=== PATIENT | female | born 1990 | race Caucasian/White ===

== ENCOUNTER 2017-07-17 19:57 | Emergency (ER) | payer OTHER ==
[2017-07-17 20:02] VITALS: TEMP 97.5
[2017-07-17] MEDS ORDERED: LORazepam 1 MG TAB PO ONE (20:26)
--- NOTE | 2017-07-17 20:30 | EDPHY ---
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 For the past several weeks she has been experiencing intermittent pharyngitis symptoms and is followed by [facility] in [facility] ear nose and throat for intermittent numbness in her mouth with no neurologic deficits, no gait instability. She has been feeling similar symptoms today, then started to experience hyperventilation, carpal pedal spasms and came to the emergency department. She has a prior history of similar. Denies: Headache, visual disturbance, motor deficits, gait instability, slurred speech, major or minor head or neck trauma manipulation. 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 Nonsmoker. PHYSICAL EXAM (Prior to examination, patient consented to physical exam, hands were washed and my usual and customary physical exam procedures followed) 1) GENERAL: Well-developed, well-nourished, alert and oriented. Appears anxious. Tearful, crying. 2) HEAD: Normocephalic, atraumatic 3) HEENT: Pupils equal, round, reactive to light bilaterally. Sclera anicteric. Nasopharynx, oropharynx, clear, no lesions. Tonsillar enlargement or exudate. Ears bilaterally with normal tympanic membranes. 4) NECK: Full range of motion, no meningeal signs. No adenopathy. 5) LUNGS: Clear auscultation bilaterally, no wheezes, no rhonchi, no retractions. 6) HEART: Regular rate and rhythm, no murmur, no heave, no gallop. 7) ABDOMEN: No guarding, no rebound, no focal tenderness, negative McBurney's, negative Spear's, negative Rovsing's, negative peritoneal sign, 8) MUSCULOSKELETAL: Moving all extremities, no focal areas of tenderness, no obvious trauma. No peripheral edema or discoloration. 9) BACK: No CVA tenderness, no midline vertebral tenderness, no fluctuance, no step-off, no obvious trauma, no visual or palpable abnormality. 10) SKIN: No rash, no petechiae. 11) Psychiatric: Patient is oriented X 3, there is no agitation. 12) NEURO: Awake, alert, and oriented to person, place and time. Answers questions appropriately. There were no obvious focal neurologic abnormalities. No cerebellar dysfunction. Cranial nerves 2 through to 12 intact. Normal steady gait. Upper and lower extremities bilaterally with strength 5 / 5, reflexes 2+. DIFFERENTIAL DIAGNOSIS: In no particular include but limited to CVA, acute anxiety, neurologic disease Smoking Status: Former smoker Constitutional: Initial Vital Signs Temperature (C) 36.4 C 07/17/17 19:59 Heart Rate 100 07/17/17 19:59 Respiratory Rate 18 07/17/17 19:59 Blood Pressure 127/81 H 07/17/17 19:59 O2 Sat (%) 97 07/17/17 19:59 O2 Delivery Mode Room Air Allergies/Adverse Reactions: No Known Allergies Allergy (Unverified 07/17/17 20:02) Home Medications: Medication Instructions Recorded NK [No Known Home Meds] 07/17/17 MDM/Departure - MDM Medications Given: Discontinued Medications Lorazepam (Ativan) 1 mg PO EDNOW ONE Stop: 07/17/17 20:27 Last Admin: 07/17/17 20:31 Dose: 1 mg ED Course/Re-evaluation: 8:26 p.m.: Patient has a nonfocal neurologic examination. She appears quite anxious. Will administer oral Ativan and re-evaluate. 9:50 p.m.: Patient was re-evaluated with serial examinations. She was given oral Ativan and re-evaluated. She is feeling more calm. She appears improved. She remains with a nonfocal exam. She expresses her frustration at ongoing evaluation for intermittent or pharyngeal paresthesia, specific etiology which is not completely clear. On exam today she has a nonfocal exam initially and repeat evaluation. I do not think that emergent imaging is indicated. I have recommend she continue to follow up with ENT as well as provided referral information for Neurology and mental health resources. She denies suicidal or homicidal ideations. She feels comfortable with this plan. She feels comfortable being discharged. Care of patient under supervision of secondary supervising physician Dr Aguilera. - Depart Disposition: Home, Routine, Self-Care Clinical Impression: Anxiety, Numbness and tingling Condition: Good Instructions: Lorazepam (By mouth), Anxiety (ED) Additional Instructions: Call 911 if you develop problems walking, talking, moving your arms or legs, or any other symptoms that concern you. Referrals: [facility] [Clinic] - 2-3 days, call for appt. Thong Melendez DO [Doctor of Osteopathy] - 2-3 days, call for appt. (Dr. Melendez is a neurologist)
[2017-07-17] MEDS ORDERED: LORAZEPAM 1 MG PREPACK#4 BTL TAKEHOME ONE (20:31)
[2017-07-17 21:53] VITALS: BP 120/68; PULSE 71; RESP 16; O2SAT 98
== END 2017-07-17 21:53 | disposition home or self-care (01) ==
DX: F41.9 Anxiety disorder, unspecified (principal); R20.2 Paresthesia of skin; R20.0 Anesthesia of skin; Z87.891 Personal history of nicotine dependence

== ENCOUNTER 2017-07-27 05:17 | Emergency (ER) | payer OTHER ==
[2017-07-27] MEDS ORDERED: NS 1,000 ML IV ONE (05:28)
[2017-07-27] MEDS ORDERED: KETOROLAC 15 MG/1 ML SDV IVP ONE (05:33)
--- NOTE | 2017-07-27 05:33 | EDPHY ---
H & P Stated Complaint: left arm pain for 3days Time Seen by Provider: 07/27/17 05:28 HPI/ROS: HPI CHIEF COMPLAINT: Musculoskeletal left arm and left side pain HISTORY OF PRESENT ILLNESS: This patient is a 26-year-old female she is otherwise healthy no significant medical history however she states for the past few months she has had numbness and tingling in both her hands and feet. She has been followed by her primary care doctor for this. Additionally she reports muscle aches. This evening she decided come the emergency room due to left arm muscular pain as well as left lateral side muscular pain. Worse when she moves her left arm and worse when she has extension of her left arm and abduction of her left arm with resistance. She denies any recent trauma or fall. Denies fever, denies recent illness. She states she has chronically had some numbness and tingling in both her hands and feet x2 months. She is unsure what it is from but is being currently worked up by her primary care doctor she is due to have a Lyme test. She denies any chest pain or shortness of breath denies vomiting. Denies recent illness. She decided come the emergency room as her left arm was further bothering her this evening. Worse with movement. And when you press on her triceps, and biceps and forearm muscles it hurts her. It is reproducible on exam. She has good cap refill good sensation to exam. She has good distal pulse on her left arm. Past Medical History: Denies medical history Past Surgical History: Denies surgical history Social History: Denies drugs alcohol tobacco. 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 Family History: Noncontributory ROS REVIEW OF SYSTEMS: A comprehensive 10 point review of systems is otherwise negative aside from elements mentioned in the history of present illness. Exam Constitutional appears well nontoxic no acute distress triage nursing summary reviewed, vital signs reviewed, awake/alert. Eyes normal conjunctivae and sclera, EOMI, PERRLA. HENT normal inspection, atraumatic, moist mucus membranes, no epistaxis, neck supple/ no meningismus, no raccoon eyes. Respiratory clear to auscultation bilaterally, normal breath sounds, no respiratory distress, no wheezing. Cardiovascular rate normal, regular rhythm, no murmur, no edema, distal pulses normal. Gastrointestinal soft, non-tender, no rebound, no guarding, normal bowel sounds, no distension, no pulsatile mass. Genitourinary no CVA tenderness. Musculoskeletal left upper extremity: The there is tenderness palpation throughout the left upper extremity mainly in the more muscular regions specifically over the triceps, biceps, and forearm muscles worse when you press feeder when you palpate, there is no crepitus, there is no cellulitis there is no signs of infection, there is a good distal pulse, good cap refill, good motor polarizer strength, full range of motion of the left arm. Additionally when you press along her left serratius muscle, left lateral/posterior wall it hurts, reproducible on exam. no midline vertebral tenderness, full range of motion, no calf swelling, no tenderness of extremities, no meningismus, good pulses, neurovascularly intact. Skin pink, warm, & dry, no rash, skin atraumatic. Neurologic awake, alert and oriented x 3, AAOx3, moves all 4 extremities equally, motor intact, sensory intact, CN II-XII intact, normal cerebellar, normal vision, normal speech. Psychiatric normal mood/affect. Heme/Lymph/Immune no lymphadenopathy. Differential Diagnosis: Includes but is not limited to in a particular order muscle strain, muscle spasm, neuropathy, infection, electrolyte disturbance, radiculopathy, peripheral nerve inflammation, carpal tunnel Medical Decision Making: Plan for this patient IV establishment with anti- inflammatory pain medicine Toradol 15 mg, basic blood work and check electrolytes, CK. Re-evaluate. Check TSH. Re-evaluation: 0636: Did re-evaluate over comfortably. Does feel better after IV Toradol. On exam she musculoskeletal component. Recommend anti-inflammatory pain medicine ice and rest. Recommend not over using her arm. Additionally return emergency room there is worsening symptoms questions or concerns. Additionally follow up with her primary care doctor. She understands. Source: Patient - Personal History LMP (Females 10-55): 8-14 Days Ago Current Tetanus/Diphtheria Vaccine: Yes Current Tetanus Diphtheria and Acellular Pertussis (TDAP): Yes - Medical/Surgical History Hx Asthma: No Hx Chronic Respiratory Disease: No Hx Diabetes: No Hx Cardiac Disease: No Hx Renal Disease: No Hx Cirrhosis: No Hx Alcoholism: No Hx HIV/AIDS: No Hx Splenectomy or Spleen Trauma: No Other PMH: anxiety - Social History Smoking Status: Former smoker Constitutional: Initial Vital Signs Temperature (C) 36.5 C 07/27/17 05:20 Heart Rate 86 04/11/18 05:20 Respiratory Rate 16 07/27/17 05:20 Blood Pressure 127/79 H 07/27/17 05:20 O2 Sat (%) 95 07/27/17 05:20 O2 Delivery Mode Room Air Allergies/Adverse Reactions: No Known Allergies Allergy (Verified 07/27/17 05:22) Home Medications: Medication Instructions Recorded Ativan 07/27/17 Ibuprofen [Motrin (*)] 800 mg PO Q6-8PRN #14 tab 07/27/17 Medical Decision Making - Data Points Laboratory Results: Laboratory Results 07/27/17 05:37 07/27/17 05:37 07/27/17 07/27/17 07/27/17 05:37 05:37 05:37 WBC 5.34 10^3/uL 10^3/uL (3.80-9.50) RBC 4.64 10^6/uL 10^6/uL (4.18-5.33) Hgb 14.5 g/dL g/dL (12.6-16.3) Hct 41.0 % % (38.0-47.0) MCV 88.4 fL fL (81.5-99.8) MCH 31.3 pg pg (27.9-34.1) MCHC 35.4 g/dL g/dL (32.4-36.7) RDW 11.5 % % (11.5-15.2) Plt Count 213 10^3/uL 10^3/uL (150-400) MPV 10.8 fL fL (8.7-11.7) Neut % (Auto) 55.8 % % (39.3-74.2) Lymph % (Auto) 34.6 % % (15.0-45.0) [place] % (Auto) 8.1 % % (4.5-13.0) Eos % (Auto) 0.9 % % (0.6-7.6) Baso % (Auto) 0.4 % % (0.3-1.7) Nucleat RBC Rel Count 0.0 % % (0.0-0.2) Absolute Neuts (auto) 2.98 10^3/uL 10^3/uL (1.70-6.50) Absolute Lymphs (auto) 1.85 10^3/uL 10^3/uL (1.00-3.00) Absolute Monos (auto) 0.43 10^3/uL 10^3/uL (0.30-0.80) Absolute Eos (auto) 0.05 10^3/uL 10^3/uL (0.03-0.40) Absolute Basos (auto) 0.02 10^3/uL 10^3/uL (0.02-0.10) Absolute Nucleated RBC 0.00 10^3/uL 10^3/uL (0-0.01) Immature Gran % 0.2 % % (0.0-1.1) Immature Gran # 0.01 10^3/uL 10^3/uL (0.00-0.10) Sodium 145 mEq/L mEq/L (135-145) Potassium 4.1 mEq/L mEq/L (3.5-5.2) Chloride 108 mEq/L mEq/L (97-110) Carbon Dioxide 22 mEq/l mEq/l (22-31) Anion Gap 15 mEq/L mEq/L (8-16) BUN 12 mg/dL mg/dL (7-23) Creatinine 0.7 mg/dL mg/dL (0.6-1.0) Estimated GFR > 60 Glucose 89 mg/dL mg/dL (70-100) Calcium 9.7 mg/dL mg/dL (8.5-10.4) Magnesium 1.9 mg/dL mg/dL (1.6-2.3) Total Bilirubin 1.2 mg/dL mg/dL (0.1-1.4) Conjugated Bilirubin 0.4 mg/dL mg/dL (0.0-0.5) Unconjugated Bilirubin 0.8 mg/dL mg/dL (0.0-1.1) AST 21 IU/L IU/L (14-46) ALT 31 IU/L IU/L (9-52) Alkaline Phosphatase 65 IU/L IU/L (38-126) Creatine Kinase 31 IU/L IU/L (0-156) Total Protein 7.4 g/dL g/dL (6.3-8.2) Albumin 4.5 g/dL g/dL (3.5-5.0) TSH 0.705 uIU/mL uIU/mL (0.465-4.680) Beta HCG, Qual NEGATIVE Medications Given: Discontinued Medications Sodium Chloride (Ns) 1,000 mls @ 0 mls/hr IV EDNOW ONE; Wide Open PRN Reason: Protocol Stop: 07/27/17 05:29 Last Admin: 07/27/17 05:45 Dose: 1,000 mls Ketorolac Tromethamine (Toradol) 15 mg IVP EDNOW ONE Stop: 07/27/17 05:34 Last Admin: 07/27/17 05:43 Dose: 15 mg Departure - Departure Disposition: Home, Routine, Self-Care Condition: Good Instructions: Arthralgia (ED) Additional Instructions: 1. Stay well-hydrated 2. Follow up with her primary care doctor 3. Return emergency room if you have worsening pain questions or concerns. Referrals: [facility] [Other] - As per Instructions Prescriptions: Ibuprofen [Motrin (*)] 800 mg PO Q6-8PRN #14 tab
[2017-07-27 05:47] LABS: PLATELET COUNT 213 10^3/uL (150-400)
[2017-07-27 06:01] LABS: CREATINE KINASE 31 IU/L (0-156)
[2017-07-27 06:46] VITALS: BP 118/74
== END 2017-07-27 06:45 | disposition home or self-care (01) ==
DX: S46.912A Strain of unspecified muscle, fascia and tendon at shoulder and upper arm level, left arm, initial encounter (principal); E86.9 Volume depletion, unspecified; Z87.891 Personal history of nicotine dependence; X58.XXXA Exposure to other specified factors, initial encounter
CPT/HCPCS: 96374; J1885

== ENCOUNTER → 2017-08-10 | Outpatient (CLI) | payer OTHER ==
[~2017-08-10] MED LIST: GADOBUTROL 10 ML VIAL IVP ONE
== END ==
LOC: FIMAGING 12:17
PROVIDERS: ATTEND Psychiatry & Neurology Neurology
DX: R20.1 Hypoesthesia of skin (principal); R20.2 Paresthesia of skin
CPT/HCPCS: A9585

== ENCOUNTER 2018-08-26 09:27 | Emergency (ER) | payer OTHER ==
[2018-08-26] MEDS ORDERED: NS 1,000 ML IV ONE (09:49)
[2018-08-26 09:57] LABS: PLATELET COUNT 233 10^3/uL (150-400)
--- NOTE | 2018-08-26 10:14 | EDPHY ---
H & P Stated Complaint: pelvic lower abd pain x 1 wk seen at [facility] obtained / ua was wnl - Personal History LMP (Females 10-55): 1-7 Days Ago Current Tetanus Diphtheria and Acellular Pertussis (TDAP): Yes - Medical/Surgical History Hx Asthma: No Hx Chronic Respiratory Disease: No Hx Diabetes: No Hx Cardiac Disease: No Hx Renal Disease: No Hx Cirrhosis: No Hx Alcoholism: No Hx HIV/AIDS: No Hx Splenectomy or Spleen Trauma: No Other PMH: anxiety - Social History Smoking Status: Former smoker Time Seen by Provider: 08/26/18 09:36 HPI/ROS: CHIEF COMPLAINT: Suprapubic pain x1 week HISTORY OF PRESENT ILLNESS: 27-year-old female via private vehicle complaining of 3/10 suprapubic discomfort for the past 1 week. She was seen at [facility] a few days ago, had an outpatient ultrasound performed 2 days ago. The results with ultrasound or known to the patient. She also had negative urinalysis. She was comes to the ER complaining of continued pain. Denies: Radiation of pain, back or flank pain, vaginal bleeding or discharge, fever, chills, nausea, vomiting, melena, hematochezia, constipation, diarrhea. 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 Appears to be in no acute distress. 2) HEAD: Normocephalic, atraumatic 3) HEENT: Pupils equal, round, reactive to light bilaterally. Sclera anicteric. 4) NECK: Full range of motion, no meningeal signs. 5) LUNGS: Clear auscultation bilaterally, no wheezes, no rhonchi, no retractions. 6) HEART: Regular rate and rhythm, no murmur, no heave, no gallop. 7) ABDOMEN: No guarding, no rebound, no focal tenderness, negative McBurney's, negative Spear's, negative Rovsing's, negative peritoneal sign, I am unable to elicit any abdominal pain on exam. 8) MUSCULOSKELETAL: Moving all extremities, no focal areas of tenderness, no obvious trauma. No peripheral edema or discoloration. 9) BACK: No CVA tenderness, no midline vertebral tenderness, no fluctuance, no step-off, no obvious trauma, no visual or palpable abnormality. 10) SKIN: No rash, no petechiae. 11) Psychiatric: Patient is oriented X 3, there is no agitation. DIFFERENTIAL DIAGNOSIS: My differential diagnosis includes, but is not limited to, acute appendicitis, acute cholecystitis, bowel obstruction, acute pancreatitis, ovarian torsion, ectopic , gastritis and urinary tract infection. The patient understands that this diagnosis is provisional and can never be 100% accurate. This is a partial list of diagnoses considered. These considerations are based on history, physical exam, past history and reassessment. (Linda Livingston) Constitutional: Initial Vital Signs Temperature (C) 36.5 C 08/26/18 09:29 Heart Rate 79 08/26/18 09:29 Respiratory Rate 18 08/26/18 09:29 Blood Pressure 104/72 08/26/18 09:29 O2 Sat (%) 94 08/26/18 09:29 O2 Delivery Mode Room Air Allergies/Adverse Reactions: No Known Allergies Allergy (Verified 08/26/18 09:27) Home Medications: Medication Instructions Recorded Ativan 07/27/17 Ibuprofen [Motrin (*)] 800 mg PO Q6-8PRN #14 tab 07/27/17 Medical Decision Making ED Course/Re-evaluation: 10:24 a.m.: I reviewed patient's old medical records. Specifically reviewed her outpatient [facility] images ultrasound of the pelvis which is normal. I discussed these results with the patient. She will exams have been performed on patient most recent at this time. Resting comfortably, sitting upright. I re-examined her abdomen on Tuesday able to elicit any abdominal pain either initial or on serial exams. Discussed her diagnostic results. For the patient that I think that acute surgical abdominal pathology such as acute appendicitis , bowel obstruction, less than likely this patient at this time. We discussed next steps. At this time I do not think that CT imaging is indicated. Nonetheless this was offered to the patient she was in agreement she does not feel is indicated. I have recommend follow up with Gastroenterology. I do not think that repeat pelvic ultrasound indicated at this time. Doubt ovarian torsion. Given usual and customary abdominal precautions instructions. She feels comfortable being discharged. Care of patient under supervision of primary supervising physician Dr Diaz with whom I discussed case. (Linda Livingston) Other Provider: PHYSICIAN DOCUMENTATION: The patient was evaluated and managed by the Physician Telegraph Service Clerk. My co- signature indicates that I have reviewed this chart and I agree with the findings and plan of care as documented. I am the secondary supervising physician. (Nick Diaz) - Data Points Laboratory Results: Laboratory Results 08/26/18 09:46 08/26/18 09:46 08/26/18 08/26/18 08/26/18 09:46 09:46 09:46 WBC RBC Hgb Hct MCV MCH MCHC RDW Plt Count MPV Neut % (Auto) Lymph % (Auto) [place] % (Auto) Eos % (Auto) Baso % (Auto) Nucleat RBC Rel Count Absolute Neuts (auto) Absolute Lymphs (auto) Absolute Monos (auto) Absolute Eos (auto) Absolute Basos (auto) Absolute Nucleated RBC Immature Gran % Immature Gran # Sodium 137 mEq/L mEq/L (135-145) Potassium 4.4 mEq/L mEq/L (3.5-5.2) Chloride 103 mEq/L mEq/L (97-110) Carbon Dioxide 23 mEq/l mEq/l (22-31) Anion Gap 11 mEq/L mEq/L (6-14) BUN 10 mg/dL mg/dL (7-23) Creatinine 0.6 mg/dL mg/dL (0.6-1.0) Estimated GFR > 60 Glucose 94 mg/dL mg/dL (70-100) Calcium 10.2 mg/dL mg/dL (8.5-10.4) Total Bilirubin 0.9 mg/dL mg/dL (0.1-1.4) Conjugated Bilirubin 0.2 mg/dL mg/dL (0.0-0.5) Unconjugated Bilirubin 0.7 mg/dL mg/dL (0.0-1.1) AST 37 IU/L IU/L (14-46) ALT 46 IU/L IU/L (9-52) Alkaline Phosphatase 79 IU/L IU/L (38-126) Total Protein 7.4 g/dL g/dL (6.3-8.2) Albumin 4.7 g/dL g/dL (3.5-5.0) Lipase 71 IU/L IU/L (23-300) Beta HCG, Qual NEGATIVE Urine Color YELLOW Urine Appearance CLEAR Urine pH 7.0 (5.0-7.5) Ur Specific [place] 1.011 (1.002-1.030) Urine Protein NEGATIVE (NEGATIVE) Urine Ketones NEGATIVE (NEGATIVE) Urine Blood NEGATIVE (NEGATIVE) Urine Nitrate NEGATIVE (NEGATIVE) Urine Bilirubin NEGATIVE (NEGATIVE) Urine Urobilinogen NEGATIVE EU EU (0.2-1.0) Ur Leukocyte Esterase NEGATIVE (NEGATIVE) Urine RBC 1-3 /hpf /hpf (0-3) Urine WBC 1-3 /hpf /hpf (0-3) Ur Epithelial Cells TRACE /lpf /lpf (NONE-1+) Urine Mucus TRACE /lpf /lpf (NONE-1+) Urine Glucose NEGATIVE (NEGATIVE) 08/26/18 09:46 WBC 6.03 10^3/uL 10^3/uL (3.80-9.50) RBC 5.02 10^6/uL 10^6/uL (4.18-5.33) Hgb 15.3 g/dL g/dL (12.6-16.3) Hct 43.2 % % (38.0-47.0) MCV 86.1 fL fL (81.5-99.8) MCH 30.5 pg pg (27.9-34.1) MCHC 35.4 g/dL g/dL (32.4-36.7) RDW 11.7 % % (11.5-15.2) Plt Count 233 10^3/uL 10^3/uL (150-400) MPV 10.5 fL fL (8.7-11.7) Neut % (Auto) 55.6 % % (39.3-74.2) Lymph % (Auto) 35.0 % % (15.0-45.0) [place] % (Auto) 8.0 % % (4.5-13.0) Eos % (Auto) 1.0 % % (0.6-7.6) Baso % (Auto) 0.2 % L % (0.3-1.7) Nucleat RBC Rel Count 0.0 % % (0.0-0.2) Absolute Neuts (auto) 3.36 10^3/uL 10^3/uL (1.70-6.50) Absolute Lymphs (auto) 2.11 10^3/uL 10^3/uL (1.00-3.00) Absolute Monos (auto) 0.48 10^3/uL 10^3/uL (0.30-0.80) Absolute Eos (auto) 0.06 10^3/uL 10^3/uL (0.03-0.40) Absolute Basos (auto) 0.01 10^3/uL L 10^3/uL (0.02-0.10) Absolute Nucleated RBC 0.00 10^3/uL 10^3/uL (0-0.01) Immature Gran % 0.2 % % (0.0-1.1) Immature Gran # 0.01 10^3/uL 10^3/uL (0.00-0.10) Sodium Potassium Chloride Carbon Dioxide Anion Gap BUN Creatinine Estimated GFR Glucose Calcium Total Bilirubin Conjugated Bilirubin Unconjugated Bilirubin AST ALT Alkaline Phosphatase Total Protein Albumin Lipase Beta HCG, Qual Urine Color Urine Appearance Urine pH Ur Specific [place] Urine Protein Urine Ketones Urine Blood Urine Nitrate Urine Bilirubin Urine Urobilinogen Ur Leukocyte Esterase Urine RBC Urine WBC Ur Epithelial Cells Urine Mucus Urine Glucose Medications Given: Discontinued Medications Sodium Chloride (Ns) 1,000 mls @ 0 mls/hr IV EDNOW ONE; Wide Open PRN Reason: Protocol Stop: 08/26/18 09:50 Last Admin: 08/26/18 10:01 Dose: 1,000 mls Departure - Departure Disposition: Home, Routine, Self-Care Clinical Impression: Abdominal pain Qualifiers: Abdominal location: lower abdomen, unspecified Qualified Code(s): R10.30 - Lower abdominal pain, unspecified Condition: Good Instructions: Acute Abdominal Pain (ED) Additional Instructions: Seek immediate medical attention if you develop new or worsening symptoms, if you develop fevers, chills, inability to tolerate oral intake or any other symptoms that concerns you. Referrals: Dave Will MD [Medical Doctor] - As per Instructions
[2018-08-26 10:53] VITALS: BP 120/81
== END 2018-08-26 10:55 | disposition home or self-care (01) ==
DX: R10.2 Pelvic and perineal pain (principal); E86.9 Volume depletion, unspecified